=== PATIENT | female | born 1990 | race Two or more races ===

== ENCOUNTER 2017-10-18 12:36 | Emergency (ER) | payer MEDICAID ==
[~2017-10-18] VITALS: Ht 162.6 cm; Wt 59.0 kg
[2017-10-18 16:46] LABS: Basophils # (auto) 0.1 uL; Basophils % (auto) 1.1 % (0.0-2.0); Eosinophils # (auto) 0 uL; Eosinophils % (auto) 0.8 % (0.0-7.0); Hematocrit 36.7 % (36.0-46.0); Hemoglobin 12.1 g/dL (12.2-16.2); Lymphocytes % (auto) 18.7 % (10.0-50.0); Mean Corpuscular Hemoglobin 30.4 pg (28.0-32.0); Mean Corpuscular Volume 92.1 fL (80.0-100.0); Monocytes # (auto) 0.6 uL; Neutrophils # (auto) 3.6 uL; Neutrophils % (auto) 68.4 % (37.0-80.0); Platelet Count (auto) 237 10^3/uL (140-450); Red Blood Cells 3.99 10^6/uL (4.0-5.20); Red Cell Distribution Width 12.7 % (11.8-14.3); White Blood Cell 5.2 10^3/uL (4.4-10.8)
[2017-10-18 17:11] LABS: INR 0.96 (0.9-1.15); Partial Thromboplastin Time 26.4 sec (22.64-33.71); Prothrombin Time 10.5 sec (9.37-12.3)
[2017-10-18 18:56] VITALS: BP 122/63
[2017-10-18 20:48] LABS: Potassium 3.9 mmol/L (3.5-5.1)
[2017-10-18 20:49] LABS: Albumin 3.6 g/dL (3.4-5.0); BUN/Creatinine Ratio 11.6; Bilirubin, Total 0.9 mg/dL (0.2-1.0); Calcium 8.3 mg/dL (8.5-10.1)
== END 2017-10-18 22:40 | disposition left against medical advice (07) ==
LOC: ER 12:36
DX: O9A.211 Injury, poisoning and certain other consequences of external causes complicating pregnancy, first trimester (principal); S82.102A Unspecified fracture of upper end of left tibia, initial encounter for closed fracture; S82.832A Other fracture of upper and lower end of left fibula, initial encounter for closed fracture; R79.1 Abnormal coagulation profile; Z3A.01 Less than 8 weeks gestation of pregnancy; W19.XXXA Unspecified fall, initial encounter; Y93.79 Activity, other specified sports and athletics; Y92.89 Other specified places as the place of occurrence of the external cause; Y99.8 Other external cause status
CPT/HCPCS: 36415; 73590; 80053; 84702; 85025; 85379; 85610; 85730